=== PATIENT | female | born 2005 | race Caucasian/White ===

== ENCOUNTER 2025-01-28 16:04 | Outpatient (RCR) | payer OTHER, SELFPAY ==
[2025-01-28 13:55] VITALS: BP 114/72
[2025-01-28] MEDS: TYLENOL 650 MG PO (14:10)
[2025-01-28] MEDS: VENOFER 110 MG IV (14:10)
[2025-01-28 15:20] VITALS: BP 99/57
--- NOTE | 2025-01-28 16:12 | DOWNTIME ---
There was a [employer] [facility] Emergency Room Clinician Downtime on 01/28/2025 from 1230 to 01/28/2025 at 1550. Downtime documentation of patient's care, including medication administrations, has been reconciled in the electronic record per guidelines. Refer to the
patient's paper chart under the miscellaneous tab to see printed paper medication records and downtime forms.
== END 2025-01-29 10:44 | disposition home or self-care (01) ==
LOC: OID 16:04
PROVIDERS: ATTENDING PHYSICIAN Psychiatry & Neurology Neurology
DX: D50.8 Other iron deficiency anemias (principal); R79.0 Abnormal level of blood mineral; E55.9 Vitamin D deficiency, unspecified; G25.0 Essential tremor
CPT/HCPCS: 96365; J1756

== ENCOUNTER 2025-02-11 14:06 | Outpatient (RCR) | payer OTHER, SELFPAY ==
[2025-02-04] MEDS: TYLENOL 650 MG PO (14:34)
[2025-02-04] MEDS: VENOFER 110 MG IV (14:35)
[2025-02-04 14:40] VITALS: BP 88/56
[2025-02-04 16:05] VITALS: BP 98/49
[2025-02-11 14:16] VITALS: BP 107/77
[2025-02-11] MEDS: VENOFER 110 MG IV (14:26)
[2025-02-11] MEDS: TYLENOL 650 MG PO (14:27)
[2025-02-11 15:26] VITALS: BP 101/52
== END 2025-02-12 08:12 | disposition home or self-care (01) ==
LOC: OID 14:06
PROVIDERS: ATTENDING PHYSICIAN Psychiatry & Neurology Neurology
DX: D50.8 Other iron deficiency anemias (principal); G43.009 Migraine without aura, not intractable, without status migrainosus; R79.0 Abnormal level of blood mineral
CPT/HCPCS: 96365; J1756